=== PATIENT | male | born 1985 | race African-American/Black ===

== ENCOUNTER 2020-09-25 14:00 | Emergency (ER) | payer OTHER ==
[~2020-09-25] VITALS: Ht 213.4 cm; Wt 68.2 kg
[2020-09-25 17:20] VITALS: BP 128/69; TEMP 98
== END 2020-09-25 17:20 | disposition home or self-care (01) ==
LOC: ED 14:00
DX: E11.9 Type 2 diabetes mellitus without complications (principal); Z79.4 Long term (current) use of insulin
CPT/HCPCS: 99281